=== PATIENT | female | born 1980 | race Caucasian/White ===

== ENCOUNTER → 2022-09-26 | Outpatient (CLI) | payer OTHER ==
--- NOTE | 2022-09-26 16:42 | P.SLEEP ---
History of Present Illness DATE: 09/26/2022 CONSULTATION/NEW PATIENT EVALUATION HISTORY OF PRESENT ILLNESS/SLEEP-WAKE EVALUATION: 42year old lady gentleman had been evaluated in the sleep center for possible obstructive sleep apnea hypopnea syndrome. SLEEP SCHEDULE: Usually sleep schedule on weekdays from 10 PM until 7 AM, during days off from 11 PM until 9 AM. FALLING ASLEEP: Usually no problems with the falling asleep, although patient has TV set and bedroom. DURING SLEEP: Patient usually sleeps on the side position with snoring and awakenings from sleep around 3 times with nocturia. No history of hypnogogical hallucinations, sleep paralysis, or cataplexy. DURING THE DAY/WAKE STATE: Sometimes patient feels sleepiness. Ragan sleepiness scale is 6. Presently usually doesn't take naps. PAST MEDICAL HISTORY: Diabetes mellitus, hypertension. PAST SURGICAL HISTORY: Cholecystectomy. MEDICATIONS: Metformin 500 mg 3 tablets a day,Lisinopril 10 mg once a day ,Glipizide, insulin, vitamin D. SOCIAL HISTORY: smoking on and off in the past, quit many years ago, alcohol consumption none at the present time. FAMILY HISTORY: Hypertension, stroke, snoring REVIEW OF SYSTEMS: Snoring, multiple awakenings from sleep with nocturia. No fevers. No double vision. No recent chest pain. No shortness of breath. No abdominal pain. No bleeding episodes. No blood in urine. No seizure episodes. PHYSICAL EXAMINATION: GENERAL: A pleasant patient without any distress. VITAL SIGNS: BP 117/76 , HR 83 , RR 16 , weight 295.6 pounds, height 5 foot 5 inches, body mass index 49.0 . HEENT: PERRLA, EOMI. Evaluation of oropharynx showed tongue protrudes midline, low position of soft palate Mallampati 4. NECK: Supple. No JVD. Thyroid is not palpable. 15.25 inches in circumference. LUNGS: Clear to percussion and to auscultation. Good air exchange. No wheezing or rhonchi. HEART: S1, S2 regular. No murmurs, gallops or rubs. ABDOMEN: Soft and nontender. Bowel sounds are present. No organomegaly appreciated. Obese. EXTREMITIES: No clubbing or cyanosis. COMMUNICATIONS ENGINEER: Awake, alert, and oriented x3. Cranial nerves 2 to 7 intact. There is no fasciculation or atrophy noted. No focal deficits observed. ASSESSMENT: 1. Snoring, multiple awakenings from sleep with nocturia, extremely low position of soft palate Mallampati 4. Possible obstructive sleep apnea hypopnea syndrome. 2. Obesity body mass index 49.0. 3 hypertension. 4. Diabetes mellitus. 5 hyperlipidemia. 6. Sinuses problems. 7. History of asthma in childhood. 8. Status post cholecystectomy. PLAN: 1. Polysomnography for evaluation of patient's breathing during sleep. 2. CPAP/BiPAP titration if sleep study confirms obstructive sleep apnea- hypopnea syndrome. 3. Preferable position during sleep on the side. 4. No driving if patient feels any sleepiness. Patient is aware of civil and criminal liability for unsafe driving. 5. Sleep hygiene with regular sleep time for at least 7.5-8 hours. 6. Losing weight. Thank you very much for referring this patient for consultation. Sincerely, Al Juárez MD, PhD, FAASM. Diplomat of [place] [employer], Sleep Medicine Board by [place] [employer] [place] [employer] [facility] [place] [facility] Note - Sleep Note Sleep Note: Temperature: Pulse Rate: Respiratory Rate: Blood Pressure: SpO2: Height: Weight: BMI: Neck Circumference:
--- NOTE | 2022-09-26 16:55 | P.SLEEP ---
History of Present Illness DATE: DATE: 09/26/2022 CONSULTATION/NEW PATIENT EVALUATION HISTORY OF PRESENT ILLNESS/SLEEP-WAKE EVALUATION: 42year old lady oh had been evaluated in the sleep center for possible obstructive sleep apnea hypopnea syndrome. SLEEP SCHEDULE: Usually sleep schedule on weekdays from 10 PM until 7 AM, during days off from 11 PM until 9 AM. FALLING ASLEEP: Usually no problems with the falling asleep, although patient has TV set and bedroom. DURING SLEEP: Patient usually sleeps on the side position with snoring and awakenings from sleep around 3 times with nocturia. No history of hypnogogical hallucinations, sleep paralysis, or cataplexy. DURING THE DAY/WAKE STATE: Sometimes patient feels sleepiness. Deaver sleepiness scale is 6. Presently usually doesn't take naps. PAST MEDICAL HISTORY: Diabetes mellitus, hypertension. PAST SURGICAL HISTORY: Cholecystectomy. MEDICATIONS: Metformin 500 mg 3 tablets a day,Lisinopril 10 mg once a day ,Glipizide, insulin, vitamin D. SOCIAL HISTORY: smoking on and off in the past, quit many years ago, alcohol consumption none at the present time. FAMILY HISTORY: Hypertension, stroke, snoring REVIEW OF SYSTEMS: Snoring, multiple awakenings from sleep with nocturia. No fevers. No double vision. No recent chest pain. No shortness of breath. No abdominal pain. No bleeding episodes. No blood in urine. No seizure episodes. PHYSICAL EXAMINATION: GENERAL: A pleasant patient without any distress. VITAL SIGNS: BP 117/76 , HR 83 , RR 16 , weight 295.6 pounds, height 5 foot 5 inches, body mass index 49.0 . HEENT: PERRLA, EOMI. Evaluation of oropharynx showed tongue protrudes midline, low position of soft palate Mallampati 4. NECK: Supple. No JVD. Thyroid is not palpable. 15.25 inches in circumference. LUNGS: Clear to percussion and to auscultation. Good air exchange. No wheezing or rhonchi. HEART: S1, S2 regular. No murmurs, gallops or rubs. ABDOMEN: Soft and nontender. Bowel sounds are present. No organomegaly appreciated. Obese. EXTREMITIES: No clubbing or cyanosis. FRAMING CONSULTANT: Awake, alert, and oriented x3. Cranial nerves 2 to 7 intact. There is no fasciculation or atrophy noted. No focal deficits observed. ASSESSMENT: 1. Snoring, multiple awakenings from sleep with nocturia, extremely low position of soft palate Mallampati 4. Possible obstructive sleep apnea hypopnea syndrome. 2. Obesity body mass index 49.0. 3 hypertension. 4. Diabetes mellitus. 5 hyperlipidemia. 6. Sinuses problems. 7. History of asthma in childhood. 8. Status post cholecystectomy. PLAN: 1. Polysomnography for evaluation of patient's breathing during sleep. 2. CPAP/BiPAP titration if sleep study confirms obstructive sleep apnea- hypopnea syndrome. 3. Preferable position during sleep on the side. 4. No driving if patient feels any sleepiness. Patient is aware of civil and criminal liability for unsafe driving. 5. Sleep hygiene with regular sleep time for at least 7.5-8 hours. 6. Losing weight. Thank you very much for referring this patient for consultation. Sincerely, Al Juárez MD, PhD, FAASM. Diplomat of [place] [employer], Sleep Medicine Board by [employer] [employer] Act[employer] [facility] [place]
== END ==
LOC: SLEEP 15:53
PROVIDERS: ATTEND Internal Medicine
DX: R06.83 Snoring (principal); I10 Essential (primary) hypertension; E11.9 Type 2 diabetes mellitus without complications; E66.9 Obesity, unspecified; Z68.42 Body mass index [BMI] 45.0-49.9, adult; E78.5 Hyperlipidemia, unspecified; J45.909 Unspecified asthma, uncomplicated; Z90.49 Acquired absence of other specified parts of digestive tract; R35.1 Nocturia; Z79.84 Long term (current) use of oral hypoglycemic drugs; Z79.4 Long term (current) use of insulin; Z87.891 Personal history of nicotine dependence
CPT/HCPCS: 99211

== ENCOUNTER 2024-04-07 13:36 | Day surgery (SDC) | payer OTHER ==
[2024-04-02 09:53] VITALS: BMI 51.9
[2024-04-07] MEDS ORDERED: HYDROmorphone 0.5 MG/0.5 ML SYRINGE IVP PRN (13:54)
[2024-04-07] MEDS ORDERED: LACTATED RINGERS 1,000 ML IV SCH (13:54)
[2024-04-07] MEDS ORDERED: LIDOCAINE 1% (10MG/ML) FOR IV START INTRADERMA PRN (13:54)
[2024-04-07] MEDS ORDERED: MIDAZOLAM 2 MG/2 ML VIAL IV PRN (13:54)
--- NOTE | 2024-04-07 14:12 | P.HPIHPCON ---
History of Present Illness H&P Date: 04/07/24 Chief Complaint: Ureteral stone This is a 43-year-old female with history of right-sided flank pain, she underwent a CT abdomen and pelvis at [facility] which showed evidence of a 5 mm left-sided ureteral stone, but in review of images it appeared to be distended stone on the left more likely to be consistent with a pelvic calcification rather than an actual stone, of note on the right side there was a questionable right-sided distal stone versus a pelvic phlebolith. Discussed with her at this point I recommend proceeding with a cystoscopy and bilateral retrograde pyelogram to better evaluate, discussed if there is evidence of stone with a we will proceed with holmium laser lithotripsy with ureteroscopy to address the stones, risk benefit and rationale of surgery was discussed with her in detail Consent for Procedure: I have explained the operation/procedure to the patient, including the risks, benefits, side effects, alternative therapies (including not receiving the proposed treatment or service), the likelihood of the patient achieving his/her goals, and potential recuperation problems for the procedure/sedation/analgesia, as well as any blood products, if indicated. I also explained to the patient the risks, benefits and side effects of the alternatives, as well as the risks related to not receiving the proposed procedure, care, treatment, or services. Past Medical History Past Medical History: Diabetes Mellitus, Hyperlipidemia, Hypertension, Sleep Apnea/CPAP/BIPAP Additional Past Medical History / Comment(s): KIDENY STONES. NO MEDS NEEDED FOR HTN OR CHOLESTROL. IBS. NO C PAP USED History of Any Multi-Drug Resistant Organisms: None Reported Past Surgical History: Cholecystectomy Additional Past Surgical History / Comment(s): COLONOSCOPY Past Anesthesia/Blood Transfusion Reactions: No Reported Reaction Smoking Status: Former smoker - Past Family History Mother Family Medical History: Unable to Obtain Additional Family Medical History / Comment(s): DOES NOT TALK TO PARENTS-FAMILY HX UNKNOWN Medications and Allergies Home Medications Medication Instructions Recorded Confirmed Type Cephalexin [Keflex] 500 mg PO DAILY 04/02/24 04/07/24 History Ergocalciferol [Vitamin D2 (1250 1,250 mcg PO MO 04/02/24 04/07/24 History Mcg = 99506 Iu)] Ibuprofen [Motrin] 600 mg PO Q6HR PRN 04/02/24 04/07/24 History Insulin Glargine,Hum.rec.anlog 30 units SQ HS 04/02/24 04/07/24 History [Toujeo Solostar] L.crispa,Radha,Dafne,Rhamno/Bact [Azo 2 each PO DAILY 04/02/24 04/07/24 History Dual Protectn 150-15 mg Cp] Ondansetron [Zofran] 4 mg PO Q8HR PRN 04/02/24 04/07/24 History Tamsulosin HCl [Flomax] 0.4 mg PO DAILY 04/02/24 04/07/24 History metFORMIN HCL [Glucophage] 1,500 mg PO DAILY 04/02/24 04/07/24 History traMADol HCL 50 mg PO Q6H PRN 04/02/24 04/07/24 History Allergies Allergy/AdvReac Type Severity Reaction Status Date / Time codeine AdvReac Itching Verified 04/07/24 13:54 Surgical - Exam Vital Signs Temp Pulse Resp BP Pulse Ox 97.9 F 95 17 153/75 97 04/07/24 14:01 04/07/24 14:01 04/07/24 14:01 04/07/24 14:01 04/07/24 14:01 - General no distress, no pain - Eyes normal ocular movement, no pale - ENT normal nares, normal mucosa - Respiratory normal expansion, normal respiratory effort - Abdomen Abdomen: soft, non tender - Psychiatric oriented to time, oriented to person, oriented to place Assessment and Plan Assessment: OR cystoscopy, bilateral retrograde pyelogram, possible ureteroscopy with holmium laser and stent
[2024-04-07 14:16] LABS: Glucose,Whole Blood 160 mg/dL (70-110)
[2024-04-07] MEDS: ONDANSETRON 4 MG/2 ML VIAL IVP ONE (14:20)
[2024-04-07] MEDS: DEXAMETHASONE SOD PHOSPHATE 4 MG/ML 1 ML VIAL IV ONE (14:20)
[2024-04-07] MEDS: LACTATED RINGERS 1,000 ML IV ONE (14:20)
[2024-04-07] MEDS ORDERED: fentaNYL (PF) 50 MCG/ML 2 ML AMP ONE (15:15)
[2024-04-07] MEDS ORDERED: PROPOFOL 10 MG/ML 20 ML VIAL IV ONE (15:15)
[2024-04-07] MEDS ORDERED: LIDOCAINE 1% INJ 10MG/ML (20 ML MDV) ONE (15:15)
[2024-04-07] MEDS ORDERED: MIDAZOLAM 2 MG/2 ML VIAL ONE (15:15)
[2024-04-07] MEDS: ceFAZolin 3 GM in SODIUM CHLORIDE 0.9% 100 ML IVPB PRN (15:17)
[2024-04-07] MEDS: IOHEXOL 350 MG/ML 100 ML in EMPTY BAG 1 BAG IRRIGATION ONE (15:37)
--- NOTE | 2024-04-07 15:58 | P.OP ---
Date of Procedure: 04/07/24 Preoperative Diagnosis: Bilateral ureteral stones Postoperative Diagnosis: Same Procedure(s) Performed: Cystoscopy, bilateral retrograde pyelogram Implants: None Anesthesia: VANNESAA Surgeon: Anup Skelton Estimated Blood Loss (ml): 1 Pathology: none sent Condition: stable Disposition: PACU Indications for Procedure: This is a 43-year-old female with history of right-sided flank pain, she underwent a CT abdomen and pelvis at [facility] which showed evidence of a 5 mm left-sided ureteral stone, but in review of images it appeared to be distended stone on the left more likely to be consistent with a pelvic calcification rather than an actual stone, of note on the right side there was a questionable right-sided distal stone versus a pelvic phlebolith. Discussed with her at this point I recommend proceeding with a cystoscopy and bilateral retrograde pyelogram to better evaluate, discussed if there is evidence of stone with a we will proceed with holmium laser lithotripsy with ureteroscopy to address the stones, risk benefit and rationale of surgery was discussed with her in detail Operative Findings: Normal bilateral retrograde pyelogram, no filling defect or hydronephrosis appreciated Description of Procedure: Patient brought to the operating room, general anesthesia was induced. She was prepped and draped in sterile fashion and placed in dorsolithotomy position. Cystoscopy fitted with a 21 Indonesian sheath was inserted per urethra, cystoscopy was performed showed no abnormality within the bladder. Both ureteral orifices were in normal anatomical location with clear efflux, the left ureteral orifice was intubated with a 6 Indonesian open-ended catheter, retrograde pyelogram was performed on that side that showed no filling defect or hydronephrosis. Delayed images were obtained which showed normal drainage of contrast. Attention was then carried to the right side which was also intubated with an open-ended catheter, retrograde pyelogram was performed on that side which showed show showed no filling defect or hydronephrosis, delayed images were obtained which showed normal drainage of contrast. At this time the bladder was emptied at the end of the case. Patient tolerated procedure well was taken to recovery in stable condition
[2024-04-07 16:22] LABS: Glucose,Whole Blood 177 mg/dL (70-110)
[2024-04-07 16:39] VITALS: RESP 16; TEMP 97
[2024-04-07 17:28] VITALS: BP 127/83; PULSE 84
--- NOTE | 2024-04-07 17:48 | FL ---
EXAMINATION TYPE: FL urography retrograde Intraoperative/procedural fluoroscopic services were provid ed. Total fluoroscopy time is 52 seconds with a total of 1 submitted images to PACS. Please see the o perative/procedural note for further details. DAP: 16.446 Gycm2
== END 2024-04-07 17:03 | disposition home or self-care (01) ==
LOC: OR 13:36
PROVIDERS: ATTEND Urology
DX: N20.1 Calculus of ureter (principal); I10 Essential (primary) hypertension; E78.5 Hyperlipidemia, unspecified; E11.9 Type 2 diabetes mellitus without complications; G47.33 Obstructive sleep apnea (adult) (pediatric); Z90.49 Acquired absence of other specified parts of digestive tract; Z87.891 Personal history of nicotine dependence; Z79.899 Other long term (current) drug therapy; Z79.84 Long term (current) use of oral hypoglycemic drugs; Z88.5 Allergy status to narcotic agent
CPT/HCPCS: 74420; 52005; J1100; J0690; J2405; Q9967; 81025